=== PATIENT | male | born 1945 | race Two or more races ===

== ENCOUNTER → 2023-10-12 11:26 | Outpatient (REF) | payer MEDICARE, OTHER, SELFPAY | LOC: HWRAD 11:26 | PROVIDERS: ATTENDING PHYSICIAN Surgery; FAMILY PHYSICIAN Family Medicine | DX: K43.2 Incisional hernia without obstruction or gangrene (principal) | CPT/HCPCS: 74177; Q9967 ==

== ENCOUNTER 2024-02-11 12:18 | Emergency (ER) | payer MEDICARE, OTHER, SELFPAY ==
[2024-02-11] VITALS (18 sets, daily range): BP systolic 101–189; BP diastolic 68–119; BMI 25.7
[2024-02-11 13:05] LABS: % Basophils 0.5 % (0-2); % Eosinophils 0.3 % (0-6); % Immature Granulocytes 0.2 % (0-0.5); % Lymphocytes 13.7 % (20.5-51.1); % Monocytes 7.8 % (1.7-9.3); % Neutrophils 77.5 % (42.2-75.2); Absolute Lymphocytes 1.2 10^3/uL (1.2-3.4); Absolute Monocytes 0.7 10^3/uL (0.1-0.6); Absolute Neutrophils 6.9 10^3/uL (1.4-6.5); Hematocrit 49.7 % (39.0-52.0); Hemoglobin 17.2 g/dL (13.0-18.0); Mean Corp Hgb Conc. 34.6 g/dL (33.0-37.0); Mean Corpuscular Hgb 33.3 pg (27.0-31.0); Mean Corpuscular Volume 96.1 fL (80.0-94.0); Mean Platelet Volume 8.6 fL (7.4-10.4); Nucleated Red Blood Cells % 0 % (-); Platelet Count 296 10^3/uL (130-400); Red Blood Cell Count 5.17 10^6/uL (4.70-6.10); Red Cell Dist. Width 14.9 % (11.5-14.5); White Blood Cell Count 8.9 10^3/uL (4.8-10.8)
[2024-02-11 13:22] LABS: ALT (SGPT) 314 U/L (0-50); AST (SGOT) 222 U/L (17-59); Albumin 4.2 g/dl (3.5-5.0); Alkaline Phosphatase 166 U/L (38-126); Blood Urea Nitrogen 21 mg/dl (9-20); Calcium 9.6 mg/dl (8.4-10.2); Carbon Dioxide 25 mmol/L (22-30); Chloride 100 mmol/L (98-107); Estimated Creatinine Clearance 86 ml/min; Glucose 154 mg/dl (70-99); Potassium 4.7 mmol/L (3.5-5.1); Sodium 138 mmol/L (135-145); Total Protein 6.4 g/dl (6.3-8.2); eGFR > 60.00
--- NOTE | 2024-02-11 14:08 | ED.GENMED ---
History of Present Illness
General
Chief Complaint: Heart Rate Problem
Time Seen by Provider: 02/11/24 12:36
History of Present Illness
History of Present Illness:
78-year-old male with history of CAD status post CABG, history of A-fib on Eliquis and metoprolol presenting to the emergency department for palpitations and concern for A-fib. Patient reports that he felt himself going to A-fib about 3 days ago
and palpitations have been worsening. Denies associated chest pain or difficulty breathing. Reports recent event of A-fib in January, status post cardioversion, successful. Denies fever or infectious symptoms. Denies abdominal pain or GI
symptoms. Reports compliance with his Eliquis, no missed doses. Denies additional acute medical complaint
Phy Exam
Physical Exam
Physical Exam:
General: Well-appearing, no clinical signs of dehydration, nontoxic and in no acute distress
HEENT: protecting airway
Neck: appears supple
CV: Tachycardic, irregular irregular, no evidence of cyanosis
Resp: No accessory muscle use, no increased work of breathing, lungs clear to auscultation bilaterally
Abd: Soft and non-distended, no tenderness to palpation
Extremities: No deformities, no swelling, no erythema
Neuro: alert, no focal neurologic deficit
: deferred
Rectal: deferred
Psych: Normal affect
Skin: Intact
Course
Orders/Labs/Results
Orders:
Orders
02/11/24 12:22
ECG [Electrocardiogram (*1)] Urgent
Reason for Study: Atrial Fibrillation
EKG- Treatment ONCE
02/11/24 12:55
CMP [Comprehensive Metabolic Panel] Urgent
Complete Blood Count/With Diff Urgent
02/11/24 13:33
Propofol [Diprivan] 20 ml .ROUTE .STK-MED
02/11/24 14:26
EKG [Electrocardiogram (*1)] Urgent
Reason for Study: Abnormal EKG
02/11/24 14:27
EKG- Treatment ONCE
Abnormal Lab Results
02/11/24
12:55
MCV 96.1 H fL
(80.0-94.0)
MCH 33.3 H pg
(27.0-31.0)
RDW 14.9 H %
(11.5-14.5)
Absolute Neuts (auto) 6.9 H 10^3/uL
(1.4-6.5)
Absolute Monos (auto) 0.7 H 10^3/uL
(0.1-0.6)
Neutrophils % 77.5 H %
(42.2-75.2)
Lymphocytes % 13.7 L %
(20.5-51.1)
BUN 21 H mg/dl
(9-20)
Glucose 154 H mg/dl
(70-99)
AST 222 H U/L
(17-59)
ALT 314 H U/L
(0-50)
Alkaline Phosphatase 166 H U/L
(38-126)
02/11/24 12:55
02/11/24 12:55
Vital Signs
Initial and Last Documented VS:
Initial Vital Signs
Temp Pulse Resp BP Pulse Ox
97.8 F 161 20 189/119 98
02/11/24 12:20 02/11/24 12:20 02/11/24 12:20 02/11/24 12:20 02/11/24 12:20
Last Documented Vital Signs
Temp Pulse Resp BP Pulse Ox
97.8 F 86 10 121/76 94
02/11/24 14:50 02/11/24 15:00 02/11/24 15:00 02/11/24 15:00 02/11/24 15:00
Procedures
Cardioversion
Indication:: Afib
Performed by:: Criss Smart, DO
Synchronized?: Yes
Energy Used: 200 joules
Number of attempts: 1
Successful?: Yes
Complications: brief apnea, rescue breaths given
ASA Risk Score: Class III
Any reaction or bad outcome to prior sedation/anesthesia?: No history of a reaction
Sedation level to be attained: moderate
Chart and allergies reviewed: Yes
Patient reassessed prior to sedation: Yes
Time out completed at (validating right patient & procedure): 14:18
History of difficult intubation: No
Airway free of obstruction: Yes
Patient has a gag reflex: Yes
Patient is able to open mouth: Yes
Patient has no dentures: Yes
Patient has no loose teeth: Yes
Medication administered by Provider during Moderate Sedation: IV Propofol (mg)
Total dose administered: 80
Time drug administered: 14:19
Start Time: 14:19
Stop Time: 14:40
MDM/Problems Addressed
MDM/Problems Addressed:
78-year-old male with history of A-fib on Eliquis presenting for 3 days of palpitations. Vital signs on arrival significant for tachycardia.
On exam, patient is generally well-appearing, no acute distress, however is very tachycardic. EKG confirms A-fib RVR. Patient notes that he had an issue with this in January, requiring cardioversion. Patient otherwise denying chest pain or
difficulty breathing. Patient notes that he was on drip during his last admission which was unsuccessful, requiring cardioversion. Will discuss with cardiology for potential cardioversion, if patient is a candidate, notes that he has not missed
any doses of his Eliquis. Will screen with laboratory analysis.
13:30 -discussed with cardiology on-call, agrees with cardioversion, however advises close interval follow-up with his doctor given frequency of A-fib events, may need adjustment of medications
14:40 -patient consented and cardioversion performed with return to sinus rhythm. Patient did have brief episode of apnea, resolved with rescue breaths. Will continue to monitor until completely awake after propofol with plan for discharge with
again close and will follow-up cardiology. Return precautions discussed
*EKG
Interpreted by ED Provider?: Yes
EKG Intrepretation Date: 02/11/24
EKG Intrepretation Time: 14:40
Interpretation: abnormal
Comparison EKG: changes noted
Heart Rate: 161
Rate: tachycardiac
Rhythm: a-fib (RVR)
[place]: normal axis
QRS Pattern: normal QRS
Ischemia: non-specific ST changes
*Critical Care Note
Total Time (30-74mins, 75-104mins- exclusive of procedures): Not Applicable
ED Attending Note
-
Portions of this chart may have been created with voice recognition software.� Occasional wrong word or��sound alike� substitutions may have occurred due to the inherent limitations of voice recognition software.
Discharge Plan
Departure
Patient Disposition: Home (Routine Discharge)
Date of Disposition: 02/11/24
Time of Disposition: 15:08
Patient with high blood pressure during this ER visit?: No
Condition: Good
Discharge Problem:
Atrial fibrillation with rapid ventricular response, Encounter for cardioversion procedure
Instructions: Atrial Fibrillation (DC), MODERATE SEDATION ADULT
Prescriptions:
No Action
atorvastatin 80 mg Tablet
80 mg PO HS Qty: 30 3RF
clopidogrel 75 mg Tablet
75 mg PO DAILY Qty: 30 3RF
Farxiga 10 mg Tablet
10 mg PO DAILY Qty: 30 2RF
Entresto 24-26 mg Tablet
1 tab PO BID Qty: 60 2RF
metoprolol succinate 25 mg Tablet Extended Release 24 Hr
25 mg PO BID Qty: 60 1RF
Eliquis 5 mg Tablet
5 mg PO BID Qty: 60 1RF
One A Day Men Complete
1 tab PO DAILY
Referrals:
John Chueng, DO [Active] -
Param Ruggiero, DO [Family Provider] -
Activity Restrictions/Additional Instructions:
You were seen in the emergency department for palpitations
You were found to have atrial fibrillation and you were subsequently cardioverted
Please follow-up closely with your patient access director. You may need adjustment of your medications.
Return to the emergency department for any worsening of your symptoms, or any development of chest pain, difficulty breathing, abdominal pain with persistent vomiting and inability to tolerate food or liquid by mouth (concern for dehydration),
weakness, headache or confusion, fever greater than 100.4, or any additional symptoms that are concerning to you.
Thank you for choosing [facility].
Interventions
Interventions:
*Risk Screen - Suicide Last Done: 02/11/24 12:50
*General Assessment Last Done: 02/11/24 12:50
*Neglect/Abuse Screening Last Done: 02/11/24 12:50
ED- Fall Risk Assessment Last Done: 02/11/24 12:52
*ED COVID-19 Vaccine History Last Done: 02/11/24 12:50
ED- Cardiac Assessment Last Done: 02/11/24 12:52
ED- Pulmonary Assessment Last Done: 02/11/24 12:52
Discharge Date and Time
Print Language: SWAZI
== END 2024-02-11 15:51 | disposition home or self-care (01) ==
LOC: EMR 12:18
PROVIDERS: EMERGENCY PHYSICIAN Student in an Organized Health Care Education/Training Program; FAMILY PHYSICIAN Family Medicine
DX: I48.91 Unspecified atrial fibrillation (principal); Z79.01 Long term (current) use of anticoagulants; I25.10 Atherosclerotic heart disease of native coronary artery without angina pectoris; Z95.1 Presence of aortocoronary bypass graft; Z79.899 Other long term (current) drug therapy
CPT/HCPCS: 92960; 99285; 80053; 85025; 93005